=== PATIENT | female | born 1995 | race African-American/Black ===

== ENCOUNTER 2017-10-26 09:05 | Emergency (ER) | payer SELFPAY | END 2017-10-26 10:17 | disposition home or self-care (01) | LOC: D.ER 09:05 | DX: J11.1 Influenza due to unidentified influenza virus with other respiratory manifestations (principal) ==

== ENCOUNTER 2018-05-02 21:24 | Emergency (ER) | payer SELFPAY ==
[~2018-05-02] VITALS: Ht 154.9 cm; Wt 78.6 kg
[2018-05-02 21:47] VITALS: Ht 154.9 cm; Wt 78.6 kg
[2018-05-02] MEDS ORDERED: IBUPROFEN600 MG PO (23:49)
[2018-05-03 00:49] VITALS: BP 128/82
== END 2018-05-03 00:18 | disposition home or self-care (01) ==
LOC: D.ER 21:24
DX: S62.600A Fracture of unspecified phalanx of right index finger, initial encounter for closed fracture (principal); Y93.83 Activity, rough housing and horseplay; Y93.89 Activity, other specified; Y92.019 Unspecified place in single-family (private) house as the place of occurrence of the external cause; F17.200 Nicotine dependence, unspecified, uncomplicated

== ENCOUNTER 2018-11-23 12:43 | Emergency (ER) | payer SELFPAY ==
[~2018-11-23] VITALS: Ht 154.9 cm; Wt 81.8 kg
[~2018-11-23 12:43] MED LIST: IBUPROFEN600 MG PO
[2018-11-23 12:47] VITALS: Ht 154.9 cm; Wt 81.8 kg
[2018-11-23] MEDS ORDERED: ZANTAC300 MG PO (12:48)
[2018-11-23] MEDS ORDERED: FLUTICASONE PRO16 GM NASAL (15:32)
[2018-11-23] MEDS ORDERED: ZPAK PO (15:32)
[2018-11-23] MEDS ORDERED: TESSALON PERLE100 MG PO (15:32)
[2018-11-23 16:07] VITALS: BP 142/100
== END 2018-11-23 16:08 | disposition home or self-care (01) ==
LOC: D.ER 12:43
DX: J01.90 Acute sinusitis, unspecified (principal); R09.89 Other specified symptoms and signs involving the circulatory and respiratory systems; J02.9 Acute pharyngitis, unspecified; F17.200 Nicotine dependence, unspecified, uncomplicated

== ENCOUNTER 2019-05-08 14:30 | Emergency (ER) | payer SELFPAY ==
[~2019-05-08] VITALS: Ht 154.9 cm; Wt 85.2 kg
[~2019-05-08 14:30] MED LIST changes: +FLUTICASONE PRO16 GM NASAL; +TESSALON PERLE100 MG PO; +ZANTAC300 MG PO; +ZPAK PO
[2019-05-08 14:49] VITALS: Ht 154.9 cm; Wt 85.2 kg
[2019-05-08 15:20] LABS: HCG URINE NEGATIVE (NEGATIVE)
[2019-05-08] MEDS ORDERED: NAPROSYN500 MG PO (17:38)
[2019-05-08 17:57] VITALS: BP 138/93
== END 2019-05-08 17:58 | disposition home or self-care (01) ==
LOC: D.ER 14:30
PROVIDERS: Emergency Medicine
DX: M25.572 Pain in left ankle and joints of left foot (principal)

== ENCOUNTER 2020-07-03 05:18 | Emergency (ER) | payer SELFPAY ==
[~2020-07-03] VITALS: Ht 154.9 cm; Wt 85.5 kg
[~2020-07-03 05:18] MED LIST changes: +NAPROSYN500 MG PO
[2020-07-03 05:23] VITALS: Ht 154.9 cm; Wt 85.5 kg
[2020-07-03 05:59] LABS: BASOPHILS 0.8 % (0-2); EOSINOPHILS 0.8 % (0-7); HEMATOCRIT 42.4 % (36.0-48.0); HEMOGLOBIN 13.7 g/dL (12-16); IMMATURE GRANULOCYTES 0.6 % (0-5); LYMPHOCYTES 25.6 % (15-50); MCH 27.7 pg (26.0-34.0); MCHC 32.3 g/dL (31.0-37.0); MCV 85.8 fL (80.0-100.0); MEAN PLATELET VOLUME 10.1 fL (7.4-10.4); MONOCYTES 7.4 % (2-11); NEUTROPHILS 64.8 % (40-80); RBC 4.94 10x6/uL (4.00-5.40); RDW 13.7 % (11.5-14.5); WBC 12.4 10x3/uL (4.8-10.8)
[2020-07-03 06:16] LABS: PLATELET COUNT 293 10x3/uL (130-400)
[2020-07-03 06:20] LABS: CALC OSMOLALITY 275 mosm/kg (275-300); CALCIUM 8.5 mg/dL (8.5-10.1); CARBON DIOXIDE 25.4 mmol/L (21.0-32.0); CHLORIDE - SERUM 106 mmol/L (98-107); CREATININE - SERUM 0.8 mg/dL (0.6-1.3); GLUCOSE 97 mg/dL (74-106); POTASSIUM - SERUM 3.7 mmol/L (3.5-5.1); SODIUM 140 mmol/L (136-145); UREA NITROGEN 5 mg/dL (7-18); eGFR NON AFRICAN AMERICAN > 90 mL/min (90-120)
[2020-07-03 06:47] LABS: ALBUMIN 3.3 g/dL (3.4-5.0); ALKALINE PHOSPHATASE 63 U/L (30-120); ALT (SGPT) 20 U/L (10-68); BILIRUBIN - TOTAL 0.44 mg/dL (0.2-1.3); HCG - QUANTITATIVE (MATERNAL) 62202 mIU/mL; PROTEIN - SERUM 6.8 g/dL (6.4-8.2)
[2020-07-03] MEDS ORDERED: MACROBID100 MG PO (06:55)
[2020-07-03 07:03] LABS: BILIRUBIN NEGATIVE (NEGATIVE); GLUCOSE NEGATIVE (NEGATIVE); KETONE NEGATIVE (NEGATIVE); NITRITE NEGATIVE (NEGATIVE); UROBILINOGEN NORMAL (NORMAL)
[2020-07-03 07:04] LABS: BACTERIA FEW /hpf (NEGATIVE); EPITHELIAL CELLS RARE /hpf (0-5); RED CELLS - URINE >50 /hpf (0-5); WHITE CELLS - URINE 0-5 /hpf (NEGATIVE)
[2020-07-03 07:10] VITALS: BP 146/87
== END 2020-07-03 07:11 | disposition home or self-care (01) ==
LOC: D.ER 05:18
PROVIDERS: Family Medicine
DX: O20.0 Threatened abortion (principal); Z3A.01 Less than 8 weeks gestation of pregnancy; R10.32 Left lower quadrant pain; R10.2 Pelvic and perineal pain; K21.9 Gastro-esophageal reflux disease without esophagitis

== ENCOUNTER 2020-08-23 16:52 | Emergency (ER) | payer SELFPAY ==
[~2020-08-23] VITALS: Ht 154.9 cm; Wt 86.4 kg
[~2020-08-23 16:52] MED LIST changes: +MACROBID100 MG PO
[2020-08-23 17:11] VITALS: Ht 154.9 cm; Wt 86.4 kg
[2020-08-23 23:35] VITALS: BP 104/61
== END 2020-08-23 23:36 | disposition home or self-care (01) ==
LOC: D.ER 16:52
DX: O26.891 Other specified pregnancy related conditions, first trimester (principal); R53.1 Weakness; R03.0 Elevated blood-pressure reading, without diagnosis of hypertension; R51.9 Headache, unspecified; R42 Dizziness and giddiness; Z3A.00 Weeks of gestation of pregnancy not specified